=== PATIENT | female | born 1990 | race American Indian/Alaskan Native ===

== ENCOUNTER → 2017-02-23 | Outpatient (CLI) | payer OTHER ==
[~2017-02-23] MED LIST: IOHEXOL 300 MG/ML 50 ML BTL (for RAD DIAG) I-UTERINE ONE
--- NOTE | 2017-02-23 10:21 | RADRPT ---
EXAM DATE/TIME: 02/23/2017 07:56 [place] COMPARISON: No previous studies available for comparison. INDICATIONS : Ovarian dysfunction for 9 months. FLUORO TIME: 1.5 minutes IMAGE COUNT: 6 CONTRAST: 40 cc Omnipaque 300 (iohexol) Injection Site Uterus/ fallopian tubes. Lot: [id number] Exp Date: February 2019 Lot: Exp Date: DEVICE: MEDICAL HISTORY : None. SURGICAL HISTORY : None. ENCOUNTER: Initial ACUITY: 7 - 11 months PAIN SCORE: 0/10 LOCATION: Uterus. FINDINGS: The right tube fills promptly with delayed spillage. The catheter was repositioned and re-injection with minimal pressure reveals prompt filling of the le ft tube with minimal spillage. Post film shows no evidence for pelvic adhesions. CONCLUSION: 1. Minimal delayed spillage on the right. 2. Minimal delayed filling on the left with eventual spillage. 3. Normal-appearing uterus. 4. There is no evidence for pelvic adhesions. Alfrdeo Warren MD FACR on February 23, 2017 at 10:13 Board Certified Radiologist. This report was verified electronically.
== END ==
LOC: HRAD 07:35
PROVIDERS: ATTEND Obstetrics & Gynecology
DX: E28.9 Ovarian dysfunction, unspecified (principal)
CPT/HCPCS: 58340; 74740; Q9967

== ENCOUNTER → 2017-05-17 | Outpatient (CLI) | payer OTHER ==
--- NOTE | 2017-05-17 14:59 | EKG ---
Date Performed: 05/17/2017 Time Performed: 07:41:48 PTAGE: 26 years EKG: Sinus rhythm . Poor R wave progression - probable normal variant Borderline ECG NO PREVIOUS TRACING DOCTOR: Dimas Horne Interpretating Date/Time 05/17/2017 14:55:21
== END ==
LOC: HCAV 07:29
PROVIDERS: ATTEND Obstetrics & Gynecology
DX: R00.2 Palpitations (principal)
CPT/HCPCS: 93005

== ENCOUNTER → 2017-05-25 | Outpatient (CLI) | payer OTHER | LOC: HPND 07:22 | PROVIDERS: ATTEND Obstetrics & Gynecology | DX: O99.281 Endocrine, nutritional and metabolic diseases complicating pregnancy, first trimester (principal); Z3A.13 13 weeks gestation of pregnancy | CPT/HCPCS: 76813 ==

== ENCOUNTER → 2017-07-05 | Outpatient (CLI) | payer OTHER | LOC: HPND 07:41 | PROVIDERS: ATTEND Obstetrics & Gynecology | DX: O35.8XX0 Maternal care for other (suspected) fetal abnormality and damage, not applicable or unspecified (principal); O99.282 Endocrine, nutritional and metabolic diseases complicating pregnancy, second trimester; Z3A.19 19 weeks gestation of pregnancy | CPT/HCPCS: 76811 ==

== ENCOUNTER → 2017-09-15 | Outpatient (CLI) | payer OTHER | LOC: HPND 07:52 | PROVIDERS: ATTEND Obstetrics & Gynecology | DX: O35.8XX0 Maternal care for other (suspected) fetal abnormality and damage, not applicable or unspecified (principal); O99.283 Endocrine, nutritional and metabolic diseases complicating pregnancy, third trimester | CPT/HCPCS: 76816 ==

== ENCOUNTER 2017-10-14 10:15 | Emergency (ER) | payer OTHER ==
--- NOTE | 2017-10-14 11:02 | PD ---
HPI Chief Complaint Shortness of breath and cough Date Seen: Oct 14, 2017 Time Seen: 10:50 Travel History International Travel<30 Days: No Contact w/Intl Traveler<30Days: No Known Affected Area: No History of Present Illness HPI 27-year-old primigravida at 33-6/7 weeks gestation who receives care from Dr. rdz. She reports having an upper respiratory illness recently with coughing and shortness of breath over the last week.. She has been using an albuterol inhaler that she received from her primary care provider which has improved but not resolved her symptoms. Dr. Rdz also provided her with a prescription for azithromycin which she has not gotten filled. She denies any fever, chills, night sweats and she has no hemoptysis. She denies chest pain. She has normal exertional capacity. She has never been diagnosed with asthma or reactive airway disease but states that she has had need of albuterol inhaler other times in adulthood. She is a nonsmoker. History Past Medical History Narrative Medical Hypothyroidism currently on Synthroid Obstetric History Obstetric History Primigravida with an uncomplicated by her history. Past Surgical History Narrative Surgical Tonsillectomy Family History Family History: Negative Social History Alcohol Use: No Tobacco Use: No Substance Abuse: No Review of Systems Except as stated in HPI: all other systems reviewed are Neg Physical Exam Narrative GENERAL: Well-nourished, well-developed patient. SKIN: Warm and dry. HEAD: Normocephalic and atraumatic. EYES: No scleral icterus. No injection or drainage. ENT: No nasal drainage noted. Mucous membranes pink. Airway patent. NECK: Supple, trachea midline. No JVD. CARDIOVASCULAR: Regular rate and rhythm without murmurs, gallops, or rubs. RESPIRATORY: Breath sounds equal bilaterally. No accessory muscle use. BREASTS: Bilateral exam showed no masses , no retractions, no nipple discharge. ABDOMEN/GI: Abdomen soft, non-tender, bowel sounds present, no rebound, no guarding Gravid to [-] weeks size Fundal Height: [-] GENITOURINARY: External Genitalia: intact and normal in appearance BUS glands: [-] Cervix: [-] Dilatation: [-] Effacement: [-] Station: [-] Presentation: [-] Membranes: [intact or ruptured] Uterine Contractions: [-] FHT's: Category: [1-] Baseline: [-] Reactive: [Yes-] Variability: [-] Decels: [-] EXTREMITIES: No cyanosis or edema. BACK: Nontender without obvious deformity. No CVA tenderness. NEUROLOGICAL: Awake and alert. Motor and sensory grossly within normal limits. Five out of 5 muscle strength in all muscle groups. Normal speech. Data Data Vital Signs Reviewed: Yes MDM Medical Record Reviewed: Yes Narrative Course / MDM Assessment: Upper respiratory infection, likely viral. Non-hypoxic. Doubt influenza. Plan: Continue albuterol inhaler. Consider adding azithromycin per Dr. Rdz's recommendation. Precautions for follow-up were reviewed with patient. Diagnosis Diagnosis: Primary Impression: Upper respiratory infection Additional Impression: 33 weeks gestation of Disposition: 01 DISCHARGE HOME Wallace Perez MD Oct 14, 2017 11:02
== END 2017-10-14 11:45 | disposition home or self-care (01) ==
LOC: HOBED 10:15
DX: O99.513 Diseases of the respiratory system complicating pregnancy, third trimester (principal); J06.9 Acute upper respiratory infection, unspecified; O99.283 Endocrine, nutritional and metabolic diseases complicating pregnancy, third trimester; E03.9 Hypothyroidism, unspecified; Z3A.33 33 weeks gestation of pregnancy
CPT/HCPCS: 59025

== ENCOUNTER → 2017-10-28 | Outpatient (CLI) | payer OTHER | LOC: HPND 08:22 | DX: O99.283 Endocrine, nutritional and metabolic diseases complicating pregnancy, third trimester (principal); O26.843 Uterine size-date discrepancy, third trimester; Z36.2 Encounter for other antenatal screening follow-up | CPT/HCPCS: 76816 ==

== ENCOUNTER 2017-11-22 08:34 | Inpatient (IN) | payer OTHER ==
[2017-11-22] VITALS (17 sets, daily range): BP systolic 115–154; BP diastolic 64–97; PULSE 73–152; RESP 16–20; TEMP 97.7–98.1; O2SAT 98
[~2017-11-22] VITALS: Ht 162.6 cm; Wt 74.0 kg
[2017-11-22] MEDS ORDERED: LACTATED RINGER'S 1000 ML INJ 1,000 ML IV PRN (09:12)
[2017-11-22] MEDS ORDERED: CITRIC ACID-SODIUM CITRATE LIQ 30 ML UDC PO SCH (09:15)
[2017-11-22] MEDS ORDERED: MINERAL OIL 10 ML VIAL TOPICAL PRN (09:15)
[2017-11-22] MEDS ORDERED: LIDOCAINE HCL 1% 50 ML VIAL INFIL PRN (09:15)
[2017-11-22] MEDS ORDERED: OXYTOCIN 30 UNITS-500ML PREMIX 500 ML IV ONE (09:15)
[2017-11-22] MEDS ORDERED: LIDOCAINE HCL 1% 50 ML VIAL I-DERMAL PRN (09:15)
[2017-11-22] MEDS ORDERED: SODIUM CHLORID 0.9% 500 ML INJ 500 ML IV PRN (09:15)
[2017-11-22] MEDS ORDERED: ONDANSETRON HCL 4 MG/2 ML VIAL IV PUSH PRN (09:15)
--- NOTE | 2017-11-22 09:18 | HHI.HP ---
HPI Chief Complaint conTraction pain Date Seen: Nov 22, 2017 Time Seen: 09:10 Travel History International Travel<30 Days: No Contact w/Intl Traveler<30Days: No Known Affected Area: No History of Present Illness HPI 27-year-old white female at [address] stringer presents in labor with contractions that are regular, no bleeding or leakage of fluid. heart rate tracing is reactive. And contractions noted on the monitor. Weeks Gestation: 39 Para: 0 : 1 History Social History Alcohol Use: No Tobacco Use: No Substance Abuse: No Allergies-Medications (Allergen,Severity, Reaction): Coded Allergies: No Known Allergies (Unverified , 11/22/17) Review of Systems General / Constitutional: No: Fever, Weight Gain, Chills, Other Eyes: No: Diploplia, Blurred Vision, Visual changes, Pain, Photophobia HENT: No: Headaches, Vertigo, Lightheadedness Cardiovascular: No: Irregular Rhythm, Chest Pain or Discomfort, Palpitations, Tachycardia, Syncope, Varicosities, Edema, Cyanosis Respiratory: No: Cough, Short of Breath, Other Gastrointestinal: Abdominal Pain, No: Nausea, Vomiting, Diarrhea Genitourinary: No: Decreased Urinary Output, Oliguria Musculoskeletal: No: Limited ROM, Weakness, Cramping, Edema, Pain Skin: No Rash, No Itching, No Dryness, No Lumps, No Change in Pigmentation, No Change in Nails, No Alopecia, No Lesions Neurologic: No: Weakness, Dizziness, Syncope, Focal Abnormalities, Coordination Problem, Headache, Slurred Speech, Seizures Psychiatric: No: Depression, Suicidal Ideations, Homicidal Ideation Endocrine: No: Heat Intolerance, Cold Intolerance, Polydipsia, Polyuria, Other Physical Exam Narrative GENERAL: Well-nourished, well-developed patient. SKIN: Warm and dry. HEAD: Normocephalic and atraumatic. EYES: No scleral icterus. No injection or drainage. ENT: No nasal drainage noted. Mucous membranes pink. Airway patent. NECK: Supple, trachea midline. No JVD. CARDIOVASCULAR: Regular rate and rhythm without murmurs, gallops, or rubs. RESPIRATORY: Breath sounds equal bilaterally. No accessory muscle use. BREASTS: Bilateral exam showed no masses , no retractions, no nipple discharge. ABDOMEN/GI: Abdomen soft, non-tender, bowel sounds present, no rebound, no guarding Gravid to [-39] weeks size Fundal Height: [39-] GENITOURINARY: External Genitalia: intact and normal in appearance BUS glands: [-] Cervix: [-] Dilatation: [-5] Effacement: [90-] Station: [-1] Presentation: [vtx-] Membranes: [intact ] Uterine Contractions: [reg-] FHT's: Category: [1-] Baseline: [-133] Reactive: [-R] Variability: [mod-] Decels: [-none] EXTREMITIES: No cyanosis or edema. BACK: Nontender without obvious deformity. No CVA tenderness. NEUROLOGICAL: Awake and alert. Motor and sensory grossly within normal limits. Five out of 5 muscle strength in all muscle groups. Normal speech. Caprini VTE Risk Assessment Caprini VTE Risk Assessment: No/Low Risk (score <= 1) Caprini Risk Assessment Model Point Value = 1 Point Value = 2 Point Value = 3 Point Value = 5 Age 41-60 Minor surgery BMI > 25 kg/m2 Swollen legs Varicose veins or History of unexplained or recurrent spontaneous Oral contraceptives or hormone replacement Sepsis (< 1 month) Serious lung disease, including pneumonia (< 1 month) Abnormal pulmonary function Acute myocardial infarction Congestive heart failure (< 1 month) History of inflammatory bowel disease Medical patient at bed rest Age 61-74 Arthroscopic surgery Major open surgery (> 45 min) Laparoscopic surgery (> 45 min) Malignancy Confined to bed (> 72 hours) Immobilizing plaster cast Central venous access Age >= 75 History of VTE Family history of VTE Factor V Leiden Prothrombin [id number] Lupus anticoagulant Anticardiolipin antibodies Elevated serum homocysteine Heparin-induced thrombocytopenia Other congenital or acquired thrombophilia Stroke (< 1 month) Elective arthroplasty Hip, pelvis, or leg fracture Acute spinal cord injury (< 1 month) Prophylaxis Regimen Total Risk Factor Score Risk Level Prophylaxis Regimen 0-1 Low Early ambulation 2 Moderate Order ONE of the following: *Sequential Compression Device (SCD) *Heparin 5000 units SQ BID 3-4 Higher Order ONE of the following medications: *Heparin 5000 units SQ TID *Enoxaparin/Lovenox 40 mg SQ daily (WT < 150 kg, CrCl > 30 mL/min) *Enoxaparin/Lovenox 30 mg SQ daily (WT < 150 kg, CrCl > 10-29 mL/min) *Enoxaparin/Lovenox 30 mg SQ BID (WT < 150 kg, CrCl > 30 mL/min) AND/OR *Sequential Compression Device (SCD) 5 or more Highest Order ONE of the following medications: *Heparin 5000 units SQ TID (Preferred with Epidurals) *Enoxaparin/Lovenox 40 mg SQ daily (WT < 150 kg, CrCl > 30 mL/min) *Enoxaparin/Lovenox 30 mg SQ daily (WT < 150 kg, CrCl > 10-29 mL/min) *Enoxaparin/Lovenox 30 mg SQ BID (WT < 150 kg, CrCl > 30 mL/min) AND *Sequential Compression Device (SCD) Data Data Orders Orders Admit To Inpatient (11/22/17 ) Vital Signs (Adult) .Per protocol (11/22/17 09:12) Heart (11/22/17 09:12) Amnioinfusion (11/22/17 09:12) Urinary Catheter Management .ONCE (11/22/17 09:12) Lactated Ringer's 1000 Ml Inj (Lr 1000 M (11/22/17 09:12) Lactated Ringer's 1000 Ml Inj (Lr 1000 M (11/22/17 09:12) Sodium Chlorid 0.9% 500 Ml Inj (Ns 500 M (11/22/17 09:15) Sodium Chlor 0.9% 1000 Ml Inj (Ns 1000 M (11/22/17 09:32) Lidocaine 1% Inj (50 Ml) (Xylocaine 1% I (11/22/17 09:15) Citric Acid-Sodium Citrate Liq (Bicitra (11/22/17 09:15) Ondansetron Inj (Zofran Inj) (11/22/17 09:15) Fentanyl Inj (Fentanyl Inj) (11/22/17 09:15) Fentanyl Inj (Fentanyl Inj) (11/22/17 09:15) Complete Blood Count With Diff (11/22/17 09:12) Hold Clot (11/22/17 09:12) Abo/Rh Blood Type (11/22/17 09:12) Urinalysis - C+S If Indicated (11/22/17 09:12) Drug Screen, Random Urine (11/22/17:12) Type And Screen (11/22/17 09:12) Resp Oxygen Non Rebreathe Mask (11/22/17 ) ^ Epidural / Intrathecal Infus (11/22/17 09:12) Oxytocin 30 Units-500ml Premix (Pitocin (11/22/17 09:15) Lidocaine 1% Inj (50 Ml) (Xylocaine 1% I (11/22/17 09:15) Light Mineral Oil (Muri-Lube Oil) (11/22/17 09:15) Group B Strep: Negative Assessment/Plan Assessment and Plan Patient is 27-year-old white female at 39 weeks a patient of Dr. Monreal presents in labor. Cervix 5 cm/ 90%/-1/vertex , contractions are regular heart rate tracing reactive and there is no bleeding or leakage of fluid. Impression- at term in labor Plan-admit to Dr. stringer, manage labor, anticipate vaginal delivery Yoni Irvin II, MD Nov 22, 2017 09:18
[2017-11-22] MEDS ORDERED: SODIUM CHLOR 0.9% 1000 ML INJ 1,000 ML IV PRN (09:32)
[2017-11-22] MEDS ORDERED: SYNT112T PO (09:46)
[2017-11-22] MEDS ORDERED: PREN1TAB45 PO (09:46)
[2017-11-22 10:00] LABS: BASOPHIL # 0.1 TH/MM3 (0-0.2); BASOPHIL % 0.5 % (0.0-2.0); EOSINOPHIL % 0.2 % (0.0-4.0); HEMATOCRIT 34.2 % (35.0-46.0); HEMOGLOBIN 11.5 GM/DL (11.6-15.3); LYMPH % 9.7 % (9.0-44.0); LYMPHOCYTE # 1.3 TH/MM3 (1.0-4.8); MEAN CELL VOLUME 75.7 FL (80.0-100.0); MEAN CORPUSCULAR HEMOGLOBIN 25.5 PG (27.0-34.0); MEAN CORPUSCULAR HGB CONC 33.6 % (32.0-36.0); MEAN PLATELET VOLUME 10.4 FL (7.0-11.0); MONO % 6.8 % (0.0-8.0); MONOCYTE # 0.9 TH/MM3 (0-0.9); NEUT % 82.8 % (16.0-70.0); PLATELET COUNT 182 TH/MM3 (150-450); RED BLOOD COUNT 4.52 MIL/MM3 (4.00-5.30); RED CELL DISTRIBUTION WIDTH 14.3 % (11.6-17.2); WHITE BLOOD COUNT 13.3 TH/MM3 (4.0-11.0)
[2017-11-22 10:15] LABS: BACTERIA, URINE RARE /hpf; BILIRUBIN, URINE NEG (NEG); BLOOD, URINE NEG (NEG); GLUCOSE,URINE NEG (NEG); KETONE, URINE NEG (NEG); NITRITE,URINE NEG (NEG); SQUAMOUS EPITHELIAL CELL URINE <1 /hpf (0-5); URINE COLOR YELLOW (YELLW/STRAW); URINE LEUKOCYTE ESTERASE NEG (NEG)
[2017-11-22] MEDS ORDERED: LIDOCAINE HCL 1% 20 ML VIAL ONE (13:55)
[2017-11-22] MEDS ORDERED: ACETAMINOPHEN 325 MG TAB PO PRN (14:30)
[2017-11-22] MEDS ORDERED: oxyCODONE/ACETAMINOPHEN 5 MG/325 MG TAB PO PRN ×2 (14:30)
[2017-11-22] MEDS ORDERED: SODIUM CHLORIDE 0.9% FLUSH 10 ML FLUSH IV FLUSH PRN (14:30)
[2017-11-22] MEDS ORDERED: OXYTOCIN 30 UNITS-500ML PREMIX 500 ML IV SCH (14:30)
[2017-11-22] MEDS ORDERED: BENZOCAINE 20% TOPICAL SPRAY 60 ML CAN TOPICAL PRN (14:30)
[2017-11-22] MEDS ORDERED: DOCUSATE SODIUM 50 MG/SENNA 8.6 MG TAB PO PRN (14:30)
[2017-11-22] MEDS ORDERED: ZOLPIDEM TARTRATE 5 MG TAB PO PRN (14:30)
[2017-11-22] MEDS ORDERED: WITCH HAZEL 50%/GLYCERIN 12.5% 40 PAD JAR TOPICAL PRN (14:30)
[2017-11-22] MEDS ORDERED: ALUMINUM/MAGNESIUM/SIMETH 30 ML CUP PO PRN (14:30)
[2017-11-22] MEDS ORDERED: ONDANSETRON ODT 4 MG TAB PO PRN (14:30)
[2017-11-22] MEDS ORDERED: MEASLES, MUMPS, RUBELLA VACCINE 0.5 ML VIAL SQ ONE (16:00)
[2017-11-22] MEDS ORDERED: DIPHTH/TETANUS/ACEL PERTUSSIS (BOOSTER) 0.5 ML VIAL/PFS IM ONE (16:00)
[2017-11-22] MEDS: LACTATED RINGER'S 1000 ML INJ 1,000 ML IV SCH ×2 (17:12→21:21)
[2017-11-22] MEDS: IBUPROFEN 800 MG TAB PO PRN (18:08)
[2017-11-22] MEDS: SODIUM CHLORIDE 0.9% FLUSH 10 ML FLUSH IV FLUSH SCH (21:00)
[2017-11-23] MEDS: IBUPROFEN 800 MG TAB PO PRN (01:59)
[2017-11-23 05:00] VITALS: RESP 18
[2017-11-23 05:57] LABS: AUTOMATED NEUTROPHIL # 13.5 TH/MM3 (1.8-7.7); BASOPHIL % 0.2 % (0.0-2.0); EOSINOPHIL % 0.2 % (0.0-4.0); HEMOGLOBIN 10.3 GM/DL (11.6-15.3); LYMPH % 12.1 % (9.0-44.0); LYMPHOCYTE # 2.1 TH/MM3 (1.0-4.8); MEAN CELL VOLUME 75.5 FL (80.0-100.0); MEAN CORPUSCULAR HEMOGLOBIN 25.2 PG (27.0-34.0); MEAN CORPUSCULAR HGB CONC 33.3 % (32.0-36.0); MEAN PLATELET VOLUME 10.3 FL (7.0-11.0); MONO % 8.2 % (0.0-8.0); MONOCYTE # 1.4 TH/MM3 (0-0.9); NEUT % 79.3 % (16.0-70.0); PLATELET COUNT 160 TH/MM3 (150-450); RED BLOOD COUNT 4.11 MIL/MM3 (4.00-5.30); RED CELL DISTRIBUTION WIDTH 14.3 % (11.6-17.2)
[2017-11-23 08:40] VITALS: BP 117/72; PULSE 81; RESP 14; TEMP 98.1
--- NOTE | 2017-11-23 08:45 | HHI.DCPOC ---
Discharge Care Plan Report Symptoms to Your Doctor -Temperature above 100.5 degrees -Redness, of incision or excessive or foul smelling drainage -Unusual pain or calf pain -Increased vaginal bleeding -Painful or difficulty urinating -Feelings of extreme sadness or anxiety after 2 weeks Goals to Promote Your Health * To prevent worsening of your condition and complications * To maintain your health at the optimal level Directions to Meet Your Goals Take your medications as prescribed Follow your dietary instruction Follow activity as directed Ensure plenty of rest for recovery Drink fluids for hydration Keep your appointments as scheduled Take your immunizations and boosters as scheduled If your symptoms worsen call your PCP, if no PCP go to Urgent Care Center or Emergency Room Smoking is Dangerous to Your Health. Avoid second hand smoke Call the 24-hour crisis hotline for domestic abuse at Devon Rdz MD Nov 23, 2017 08:45
[2017-11-23] MEDS: SODIUM CHLORIDE 0.9% FLUSH 10 ML FLUSH IV FLUSH SCH (09:00)
--- NOTE | 2017-11-28 08:10 | MD ---
cc: ORLANDO MIN MD ADMISSION DATE: 11/22/2017 DISCHARGE DATE: 11/23/2017 ADMISSION DIAGNOSIS Term , active labor. DISCHARGE DIAGNOSIS Term , active labor, delivered. HISTORY OF PRESENT ILLNESS The patient is a 27-year-old white female, para 0-0-1-0 with LMP of 02/18/2017 by dates, EDC of 11/25/17. occurred with Clomid induction of ovulation for a corrected EDC of 11/28/17. Her preop course was benign. Her panorama testing and genetic ultrasounds were normal. She received progesterone support in total to 12 weeks. Her GBS was negative. She developed labor late on the evening of 11/21/2017, was admitted on the morning of 11/22/2017 and progressed to a spontaneous vaginal delivery by natural childbirth, a viable vigorous female. Apgars were 8 and 9, weight was 6 pounds 15 ounces. She had a small first degree tear and left ___ tear repaired with Chromic suture and local anesthesia. did well, discharged home in excellent condition on 11/23/2017. She was advised NPV, light activity, return to see me in 6 weeks. She is to call for abnormal pain, bleeding, temperature, signs of infection, depression. She will take her thyroid meds and vitamins regularly. She is breast feeding. Baby's name is Kat. MD ODESSA Esquivel/TLL /8:49 AM /7:54 AM
== END 2017-11-23 15:30 | disposition home or self-care (01) | DRG 775 ==
LOC: HOBED 08:34 → H2EB 09:29 → H1EA 16:26
PROVIDERS: ADMIT Obstetrics & Gynecology; ATTEND Obstetrics & Gynecology
PROC: 10E0XZZ Delivery of Products of Conception, External Approach (ICD-10-PCS; principal; 2017-11-22)
PROC: 0HQ9XZZ Repair Perineum Skin, External Approach (ICD-10-PCS; 2017-11-22)
PROC: 0UQMXZZ Repair Vulva, External Approach (ICD-10-PCS; 2017-11-22)
DX: O70.0 First degree perineal laceration during delivery (principal); O71.82 Other specified trauma to perineum and vulva; Z37.0 Single live birth; Z3A.39 39 weeks gestation of pregnancy
CPT/HCPCS: 59025; 80307; 81001; 85025; 86850; 86900; 86901; 90715